=== PATIENT | female | born 1970 | race Asian ===

== ENCOUNTER 2020-05-31 09:45 | Outpatient (CLI) | payer OTHER | END 2020-05-31 20:48 | disposition home or self-care (01) | LOC: SRD 09:45 → SMA 20:48 | PROVIDERS: ATTEND Family Medicine | DX: Z12.31 Encounter for screening mammogram for malignant neoplasm of breast (principal) | CPT/HCPCS: 77067 ==

== ENCOUNTER 2022-04-21 09:08 | Inpatient (IN) | payer OTHER ==
[~2022-04-21] VITALS: Ht 149.9 cm; Wt 65.8 kg
[2022-04-21 09:39] VITALS: BP_SYST 143
[2022-04-21 10:19] LABS: BASOPHILS % (AUTO) 0.7 % (0.0-2.0); EOSINOPHILS # (AUTO) 0.1 K/uL (0.0-0.4); EOSINOPHILS % (AUTO) 3.4 % (0.0-4.0); LYMPHOCYTES # (AUTO) 1.3 K/uL (1.0-5.5); LYMPHOCYTES % (AUTO) 40.4 % (20.5-51.5); MEAN CORPUSCULAR HEMOGLOBIN 17 pg (27-31); MEAN CORPUSCULAR HGB CONC 29 % (32-36); MEAN CORPUSCULAR VOLUME 58 fL (79.0-98.0); MONOCYTES # (AUTO) 0.2 K/uL (0.0-1.0); MONOCYTES % (AUTO) 6.3 % (1.7-9.3); NEUTROPHILS # (AUTO) 1.6 K/uL (1.8-7.7); NEUTROPHILS % (AUTO) 49.2 % (40.0-70.0); PLATELET COUNT (AUTO) 91 K/uL (130-430); RED BLOOD CELL COUNT(AUTO) 3.17 MIL/uL (4.2-6.2); RED CELL DISTRIBUTION WIDTH 18.7 % (9.0-15.0); WHITE BLOOD COUNT (AUTO) 3.2 K/uL (4.8-10.8)
[2022-04-21 10:28] LABS: HEMATOCRIT 18.5 % (36-48); HEMOGLOBIN 5.4 g/dL (12.0-16.0)
[2022-04-21 10:36] LABS: INR 1.2 (0.8-1.2); PROTHROMBIN TIME 12.4 SECS (9.5-12.5)
[2022-04-21 10:42] LABS: CALCIUM 8.2 mg/dL (8.4-11.0); CREATININE 0.65 mg/dL (0.55-1.30)
[2022-04-21 10:46] LABS: ALBUMIN 3.6 g/dL (3.4-4.8); TOTAL BILIRUBIN 1.2 mg/dL (0.0-1.0)
[2022-04-21] MEDS ORDERED: MAGNESIUM SULFATE 50 ML IV PRN (12:00)
[2022-04-21] MEDS ORDERED: MUPIROCIN 2% TOPICAL OINTMENT 22 GM NS PRN (12:00)
[2022-04-21] MEDS ORDERED: DOCUSATE SODIUM 100 MG CAPSULE PO PRN (12:00)
[2022-04-21] MEDS ORDERED: POTASSIUM CHLORIDE 20 MEQ TAB.PRT.SR PO PRN (12:00)
[2022-04-21] MEDS ORDERED: ACETAMINOPHEN 325 MG TABLET PO PRN (12:00)
[2022-04-21] MEDS ORDERED: ONDANSETRON HCL 4 MG/2 ML VIAL IVP PRN (12:00)
[2022-04-21] MEDS ORDERED: MORPHINE 2 MG/ML INJ. SYRINGE IVP PRN ×2 (12:00)
[2022-04-21] MEDS ORDERED: LISI20TA30 (12:46)
[2022-04-21] MEDS ORDERED: METF-379 (12:46)
[2022-04-21] MEDS ORDERED: LABE100T8 (12:55)
[2022-04-21 20:10] VITALS: BP_SYST 151
[2022-04-21] MEDS: metFORMIN HCL 500 MG TABLET PO SCH (23:45)
[2022-04-21] MEDS ORDERED: LABETALOL HCL 100 MG TABLET ONE (23:59)
[2022-04-22] MEDS: LABETALOL HCL 100 MG TABLET PO SCH ×3 (00:01→20:42)
[2022-04-22 00:17] VITALS: BP_SYST 135
[2022-04-22 08:08] LABS: BASOPHILS % (AUTO) 0.5 % (0.0-2.0); EOSINOPHILS # (AUTO) 0.1 K/uL (0.0-0.4); EOSINOPHILS % (AUTO) 2.6 % (0.0-4.0); HEMATOCRIT 23.1 % (36-48); HEMOGLOBIN 7.2 g/dL (12.0-16.0); LYMPHOCYTES # (AUTO) 1.3 K/uL (1.0-5.5); LYMPHOCYTES % (AUTO) 32.3 % (20.5-51.5); MEAN CORPUSCULAR HEMOGLOBIN 20 pg (27-31); MEAN CORPUSCULAR HGB CONC 31 % (32-36); MEAN CORPUSCULAR VOLUME 63 fL (79.0-98.0); MONOCYTES # (AUTO) 0.2 K/uL (0.0-1.0); MONOCYTES % (AUTO) 6.2 % (1.7-9.3); NEUTROPHILS # (AUTO) 2.3 K/uL (1.8-7.7); NEUTROPHILS % (AUTO) 58.4 % (40.0-70.0); PLATELET COUNT (AUTO) 83 K/uL (130-430); RED BLOOD CELL COUNT(AUTO) 3.65 MIL/uL (4.2-6.2); RED CELL DISTRIBUTION WIDTH 24.6 % (9.0-15.0)
[2022-04-22 08:47] LABS: CALCIUM 8.4 mg/dL (8.4-11.0); CREATININE 0.58 mg/dL (0.55-1.30)
[2022-04-22 09:25] VITALS: BP_SYST 135
[2022-04-22] MEDS: metFORMIN HCL 500 MG TABLET PO SCH ×2 (10:11→18:38)
[2022-04-22] MEDS: PANTOPRAZOLE SODIUM 40 MG/VIAL (PROTONIX) IVP SCH (10:12)
[2022-04-22] MEDS: lisinopriL 20 MG TABLET PO SCH (10:12)
[2022-04-22 11:31] VITALS: BP_SYST 122
[2022-04-22 15:31] VITALS: BP_SYST 110
[2022-04-22] MEDS ORDERED: DIATR MEGLU/DIATRIZ SOD 30 ML SOLUTION PO ONE (16:55)
[2022-04-22 20:18] LABS: EOSINOPHILS # (AUTO) 0.3 K/uL (0.0-0.4); HEMOGLOBIN 8.8 g/dL (12.0-16.0); NEUTROPHILS # (AUTO) 3.1 K/uL (1.8-7.7); WHITE BLOOD COUNT (AUTO) 5.9 K/uL (4.8-10.8)
[2022-04-22 20:24] LABS: BASOPHILS % (AUTO) 0.4 % (0.0-2.0); EOSINOPHILS % (AUTO) 4.4 % (0.0-4.0); HEMATOCRIT 28.2 % (36-48); LYMPHOCYTES % (AUTO) 33.8 % (20.5-51.5); MEAN CORPUSCULAR HEMOGLOBIN 21 pg (27-31); MEAN CORPUSCULAR HGB CONC 31 % (32-36); MEAN CORPUSCULAR VOLUME 67 fL (79.0-98.0); MONOCYTES # (AUTO) 0.5 K/uL (0.0-1.0); NEUTROPHILS % (AUTO) 52.4 % (40.0-70.0); PLATELET COUNT (AUTO) 89 K/uL (130-430); RED BLOOD CELL COUNT(AUTO) 4.22 MIL/uL (4.2-6.2); RED CELL DISTRIBUTION WIDTH 28.7 % (9.0-15.0)
[2022-04-22 20:30] VITALS: BP_SYST 140
[2022-04-23 00:21] VITALS: BP_SYST 120
[2022-04-23] MEDS: PANTOPRAZOLE SODIUM 40 MG/VIAL (PROTONIX) IVP SCH (08:03)
[2022-04-23] MEDS: metFORMIN HCL 500 MG TABLET PO SCH (08:04)
[2022-04-23] MEDS: lisinopriL 20 MG TABLET PO SCH (08:04)
[2022-04-23] MEDS: LABETALOL HCL 100 MG TABLET PO SCH (08:04)
[2022-04-23 08:12] VITALS: BP_SYST 152
[2022-04-23 10:28] LABS: CALCIUM 9.4 mg/dL (8.4-11.0); CREATININE 0.64 mg/dL (0.55-1.30)
[2022-04-23 12:11] LABS: HEMATOCRIT 28.9 % (36-48); HEMOGLOBIN 8.9 g/dL (12.0-16.0); MEAN CORPUSCULAR VOLUME 67 fL (79.0-98.0); WHITE BLOOD COUNT (AUTO) 4.4 K/uL (4.8-10.8)
[2022-04-23 12:12] LABS: BASOPHILS % (AUTO) 0.8 % (0.0-2.0); EOSINOPHILS # (AUTO) 0.2 K/uL (0.0-0.4); EOSINOPHILS % (AUTO) 4.4 % (0.0-4.0); LYMPHOCYTES # (AUTO) 1.5 K/uL (1.0-5.5); LYMPHOCYTES % (AUTO) 34.5 % (20.5-51.5); MEAN CORPUSCULAR HEMOGLOBIN 21 pg (27-31); MEAN CORPUSCULAR HGB CONC 31 % (32-36); MONOCYTES # (AUTO) 0.3 K/uL (0.0-1.0); MONOCYTES % (AUTO) 6.7 % (1.7-9.3); NEUTROPHILS # (AUTO) 2.4 K/uL (1.8-7.7); NEUTROPHILS % (AUTO) 53.6 % (40.0-70.0); PLATELET COUNT (AUTO) 100 K/uL (130-430)
[2022-04-23] MEDS ORDERED: FERR325T30 PO (12:42)
[2022-04-23 13:38] VITALS: BP_SYST 135
== END 2022-04-23 13:53 | disposition home or self-care (01) | DRG 394 ==
LOC: SED 09:08 → STU 11:54
PROVIDERS: ADMIT Family Medicine; ATTEND Family Medicine
PROC: 30233N1 Transfusion of Nonautologous Red Blood Cells into Peripheral Vein, Percutaneous Approach (ICD-10-PCS; principal; 2022-04-21)
DX: K64.9 Unspecified hemorrhoids (principal); R65.10 Systemic inflammatory response syndrome (SIRS) of non-infectious origin without acute organ dysfunction; K74.60 Unspecified cirrhosis of liver; D64.9 Anemia, unspecified; I10 Essential (primary) hypertension; R73.03 Prediabetes; D72.819 Decreased white blood cell count, unspecified; R73.9 Hyperglycemia, unspecified; Z20.822 Contact with and (suspected) exposure to COVID-19
CPT/HCPCS: 36415; 76376; 80048; 80053; 82150; 82962; 83605; 83690; 83735; 84703; 85025; 85610-TC; 85730-TC; 86886; 86900; 86901; 86920; 99285; C9113; G0378; P9021; Q9964